=== PATIENT | female | born 1960 ===

== ENCOUNTER → 2018-09-23 21:10 | Outpatient (REF) | payer OTHER, SELFPAY ==
[2018-09-23 22:40] LABS: Add Manual Diff / Slide Review NO; Basophils Percent Auto 0.9 % (0-2); Eosinophils Percent Auto 5.7 % (2-4); Hemoglobin 12.6 g/dL (12.0-16.0); Lymphocytes Percent Auto 39.1 % (25-40); Mean Corpuscular HGB Conc 33.2 % (30-36); Mean Corpuscular Hemoglobin 30.5 PG (26-34); Monocytes Percent Auto 5.5 % (3-14); Neutrophils Absolute Auto 4800 /uL (1500-7000); Neutrophils Percent Auto 48.8 % (50-75); Platelet Count 300 X10^3/uL (150-400); Red Blood Cell Count 4.13 X10^6/uL (4.0-5.2); Red Cell Distribution Width 14.6 % (11.6-14.8); White Blood Cell Count 9.8 X10^3/uL (4.5-11.0)
[2018-09-24 01:16] LABS: Alanine Aminotransferase 44 IU/L (9-52); Albumin 4.1 g/dL (3.5-5.0); Albumin Globulin Ratio 1.5 (1.0-2.8); Alkaline Phosphatase 104 U/L (38-126); Aspartate Aminotransferase 38 IU/L (14-36); BUN Creatinine Ratio 23.8 (6-22); Bilirubin Total 0.3 mg/dL (0.2-1.3); Blood Urea Nitrogen 19 mg/dL (7-17); Calcium 9.8 mg/dL (8.4-10.2); Carbon Dioxide 29 mmol/L (22-32); Chloride 101 mmol/L (98-107); Estimated Glomerular Filt Rate > 60.0 mL/min (>60); Globulin 2.7 g/dL (1.7-4.1); Glucose 124 mg/dL (70-100); HEMOLYSIS < 15 (0-50); Potassium 4.3 mmol/L (3.4-5.1); Sodium 143 mmol/L (137-145); Total Protein 6.8 g/dL (6.3-8.2)
[2018-09-24 01:49] LABS: Ferritin 10.6 ng/mL (11.1-264)
[2018-09-24 07:31] LABS: Free T3, Triiodothyronine Free 3.31 pg/mL (2.77-5.27); Free T4, Direct Thyroxine 1.05 ng/dL (0.78-2.19)
[2018-09-24 07:44] LABS: Thyroid Stimulating Hormone 2.08 uIU/mL (0.47-4.68)
[2018-09-25 15:10] LABS: Progesterone < 0.5 ng/mL
[2018-09-25 16:44] LABS: Dehydroepiandrosterone Sulfate 29 mcg/dL (8-188)
[2018-09-25 18:42] LABS: Sex Hormone Binding Globulin 48 nmol/L (14-73)
[2018-09-29 16:15] LABS: Testosterone Free 1.6 pg/mL (0.1-6.4); Testosterone Total 17 ng/dL (2-45)
[2018-10-06 19:22] LABS: Triiodothyronine T3 Reverse 16 ng/dL (8-25)
[2018-10-11 15:05] LABS: Estrogen 149.9 pg/mL
== END ==
LOC: LAB 21:10
PROVIDERS: Visit Provider Naturopath
DX: R53.83 Other fatigue (principal); Z13.89 Encounter for screening for other disorder; E28.2 Polycystic ovarian syndrome; L40.59 Other psoriatic arthropathy; E11.9 Type 2 diabetes mellitus without complications; G62.9 Polyneuropathy, unspecified; R63.5 Abnormal weight gain
CPT/HCPCS: 36415; 80053; 82627; 82672; 82728; 84144; 84270; 84402; 84403; 84439; 84443; 84481; 84482; 85025

== ENCOUNTER → 2019-01-10 21:26 | Outpatient (REF) | payer OTHER, SELFPAY ==
[2019-01-10 23:31] LABS: Add Manual Diff / Slide Review NO; Basophils Absolute Auto 100 /uL (0-100); Basophils Percent Auto 0.7 % (0-2); Eosinophils Absolute Auto 400 /uL (0-450); Eosinophils Percent Auto 4.2 % (2-4); Hematocrit 38.9 % (36-46); Hemoglobin 12.9 g/dL (12.0-16.0); Lymphocytes Absolute Auto 3400 /uL (1100-4500); Lymphocytes Percent Auto 39.5 % (25-40); Mean Corpuscular HGB Conc 33.1 % (30-36); Mean Corpuscular Hemoglobin 30.9 PG (26-34); Mean Corpuscular Volume 93.4 fL (80-100); Monocytes Absolute Auto 600 /uL (0-900); Monocytes Percent Auto 6.8 % (3-14); Neutrophils Absolute Auto 4100 /uL (1500-7000); Neutrophils Percent Auto 48.8 % (50-75); Platelet Count 288 X10^3/uL (150-400); Red Blood Cell Count 4.17 X10^6/uL (4.0-5.2); Red Cell Distribution Width 15.7 % (11.6-14.8); White Blood Cell Count 8.5 X10^3/uL (4.5-11.0)
[2019-01-11 01:56] LABS: Ferritin 16.2 ng/mL (11.1-264)
[2019-01-13 16:19] LABS: Progesterone 2.6 ng/mL
[2019-01-13 21:17] LABS: Estrogen 112.9 pg/mL
== END ==
LOC: LAB 21:26
PROVIDERS: Visit Provider Naturopath
DX: E61.1 Iron deficiency (principal); N95.2 Postmenopausal atrophic vaginitis; E28.2 Polycystic ovarian syndrome; R53.83 Other fatigue; L40.9 Psoriasis, unspecified; L40.59 Other psoriatic arthropathy; H81.13 Benign paroxysmal vertigo, bilateral; N95.1 Menopausal and female climacteric states; N39.0 Urinary tract infection, site not specified
CPT/HCPCS: 36415; 82672; 82728; 84144; 84270; 84402; 84403; 85025; 87086